=== PATIENT | male | born 1955 | race Caucasian/White ===

== ENCOUNTER 2018-06-20 21:43 | Emergency (ER) | payer OTHER ==
[~2018-06-20] VITALS: Ht 177.8 cm; Wt 136.1 kg
[~2018-06-20 21:43] MED LIST: ADULT LOW DOSE81 MG PO; ASPIR 8181 MG PO; B12 PO; BACTRIM DS TAB1 EACH PO; CARDURA4 MG PO; CENTRUM SILVER1 EAC2 PO; CRANBERRY 6,001 EACH PO; FISH OIL 1,001000 M2 PO; FISH OIL 1,001000 MG; FISH OIL 1,2001 EAC3 PO; FUROSEMIDE 40 M40 M1 PO; LASIX 40 MG TAB40 M2 PO; MELATONIN3 MG PO; MOBIC15 MG PO; NORCO 5-325 TA1 EACH PO; NORVASC 5 MG TAB5 MG PO; NORVASC5 MG PO; OMEPRAZOLE 20 M20 MG; OMEPRAZOLE40 MG PO; PAXIL10 MG PO; PERCOCET 5-3251 EACH PO; POLYMYXIN B/TMP10 ML OP; PRILOSEC40 MG PO; TOPROL XL50 MG PO; VITAMIN C WITH500 MG PO; VITAMIN C1000 MG PO; VITAMIN D2000 UNIT PO; VITAMINC500; VITAMINC500 PO
[2018-06-20 22:21] LABS: ABSOLUTE EOSINOPHILS 0.3 thou/uL (0.0-0.7); ABSOLUTE LYMPHOCYTES 1.8 thou/uL (0.8-5.3); ABSOLUTE MONOCYTES 0.5 thou/uL (0.0-1.2); ABSOLUTE NEUTROPHILS 2.8 thou/uL (1.6-8.1); BASOPHILS 0.9 %; EOSINOPHILS 5.7 %; HEMATOCRIT 40.5 % (42.0-52.0); HEMOGLOBIN 13.6 gm/dL (14.0-18.0); LYMPHOCYTES 32.4 %; MCH 32.9 pg (26.0-34.0); MCHC 33.7 g/dL (28.0-37.0); MCV 97.5 fL (80.0-100.0); MONOCYTES 9.8 %; NUCLEATED RBCS 0 /100WBC; PLATELET COUNT* 222 thou/uL (150-400); POLYS 51.2 %; RBC 4.15 mil/uL (4.50-6.00); RDW-CV 13.4 % (10.5-14.5); WBC 5.5 thou/uL (4.0-11.0)
[2018-06-20 22:26] LABS: ANION GAP 4 mmol/L (7-16); BUN 20 mg/dL (7-18); CALCIUM 9.1 mg/dL (8.5-10.1); CHLORIDE 104 mmol/L (98-107); CO2 33 mmol/L (21-32); GLUCOSE 106 mg/dL (70-99); POTASSIUM 3.5 mmol/L (3.5-5.1); SODIUM 141 mmol/L (136-145)
[2018-06-20 22:42] LABS: ALBUMIN 3.5 g/dL (3.4-5.0); ALKALINE PHOSPHATASE 80 U/L (46-116); LIPASE 160 U/L (73-393); NT-PRO BRAIN NAT PEPTIDE 36 pg/mL (<300); SGOT 20 U/L (15-37); SGPT 30 U/L (30-65); TOTAL BILIRUBIN 0.4 mg/dL (<0.1-1.0); TOTAL PROTEIN 7.6 g/dL (6.4-8.2); TROPONIN-I LEVEL <0.06 ng/mL (<0.06)
[2018-06-21 01:35] VITALS: BP 146/83
--- NOTE | 2018-06-21 09:00 | EKG ---
[place] [address] ELECTROCARDIOGRAM REPORT Name: JOYCELYN WONG [id number] Admission: 06/20/18 Attend Phys: Discharge: 06/21/18 Date of : 55 Report #: [id number] THIS REPORT FOR: //name// [facility] ED Test Date: 2018-06-20 Test Time: 21:54:19 Pat Name: JOYCELYN WONG Department: Room: Gender: Teacher Citizenship: Vidal RIVAS : 1955 Requested By: Negrita Murphy Order Number: [id number] MD: Charly Sidhu Measurements Intervals [place] Rate: 71 P: 51 [place]: 164 QRS: 9 QRSD: 109 T: 35 QT: 378 QTc: 411 Interpretive Statements Sinus rhythm Compared to ECG 03/09/2016 13:28:13 No significant changes Electronically Signed On 06-21-2018 8:59:52 BILL CUTTER by Charly Sidhu [email or web address] <ELECTRONICALLY SIGNED> By: Charly Sidhu MD, [facility] 06/21/18 [id number] Charly Sidhu MD, FACC /EPI
== END 2018-06-21 01:35 | disposition home or self-care (01) ==
LOC: M.ERS 21:43
PROVIDERS: Personal Emergency Response Attendant
DX: R07.89 Other chest pain (principal); I10 Essential (primary) hypertension; E78.5 Hyperlipidemia, unspecified; Z85.51 Personal history of malignant neoplasm of bladder; Z88.0 Allergy status to penicillin

== ENCOUNTER 2019-09-12 16:51 | Emergency (ER) | payer BC ==
[~2019-09-12] VITALS: Ht 177.8 cm; Wt 136.1 kg
[2019-09-12] MEDS ORDERED: NORCO 5-325 TA1 EAC1 PO (17:30)
[2019-09-12 18:15] VITALS: BP 148/82
== END 2019-09-12 18:16 | disposition home or self-care (01) ==
LOC: M.ERS 16:51
DX: S50.02XA Contusion of left elbow, initial encounter (principal); I10 Essential (primary) hypertension; Z85.51 Personal history of malignant neoplasm of bladder; Z88.0 Allergy status to penicillin; W01.0XXA Fall on same level from slipping, tripping and stumbling without subsequent striking against object, initial encounter; Y93.89 Activity, other specified; Y92.89 Other specified places as the place of occurrence of the external cause; Y99.8 Other external cause status

== ENCOUNTER → 2019-09-18 | Outpatient (CLI) | payer BC ==
[~2019-09-18] MED LIST changes: +NORCO 5-325 TA1 EAC1 PO
== END ==
LOC: M.RAD 11:43
DX: M79.89 Other specified soft tissue disorders (principal)

== ENCOUNTER 2020-02-23 15:47 | Inpatient (IN) | payer BC, MEDICARE ==
[~2020-02-23] VITALS: Ht 177.8 cm; Wt 145.1 kg
[2020-02-23 15:57] VITALS: BP 153/84
[2020-02-23 16:24] LABS: ABSOLUTE EOSINOPHILS 0.2 thou/uL (0.0-0.7); ABSOLUTE LYMPHOCYTES 1.4 thou/uL (0.8-5.3); ABSOLUTE MONOCYTES 0.5 thou/uL (0.0-1.2); ABSOLUTE NEUTROPHILS 3.2 thou/uL (1.6-8.1); BASOPHILS 0.8 %; EOSINOPHILS 3.9 %; HEMATOCRIT 38.1 % (42.0-52.0); HEMOGLOBIN 13.1 gm/dL (14.0-18.0); LYMPHOCYTES 26.1 %; MCH 33.2 pg (26.0-34.0); MCHC 34.3 g/dL (28.0-37.0); MCV 96.9 fL (80.0-100.0); MONOCYTES 9.9 %; MPV 7.5 fl. (7.2-11.1); NUCLEATED RBCS 0 /100WBC; PLATELET COUNT* 187 thou/uL (150-400); POLYS 59.3 %; RBC 3.93 mil/uL (4.50-6.00); RDW-CV 13.5 % (10.5-14.5); WBC 5.4 thou/uL (4.0-11.0)
[2020-02-23 16:29] LABS: CALCIUM 8.3 mg/dL (8.5-10.1)
[2020-02-23 16:32] LABS: APTT 25.9 Seconds (25.0-31.3); PROTIME 10.1 Seconds (9.20-11.50)
[2020-02-23 16:39] LABS: ALBUMIN 3.6 g/dL (3.4-5.0); TOTAL BILIRUBIN 0.5 mg/dL (<0.1-1.0)
[2020-02-23 17:28] VITALS: BP 144/73
[2020-02-23 18:29] LABS: CHOLESTEROL 200 mg/dL (<200); HDL CHOLESTEROL 45 mg/dL (>40); LDL CHOLESTEROL 127 mg/dL (<100); TC:HDL 4.4 Ratio (Not establshd); TRIGLYCERIDE 142 mg/dL (<150); VLDL 28 mg/dL (<40)
[2020-02-23 18:30] LABS: SERUM ASSESSMENT Clear
[2020-02-23 18:47] VITALS: BP 157/80
[2020-02-23 20:15] VITALS: BP 137/75
[2020-02-23] MEDS ORDERED: D3-200050 MCG PO (20:39)
[2020-02-23] MEDS ORDERED: LITE COAT ASPI325 MG PO (20:41)
[2020-02-24] VITALS (9 sets, daily range): BP systolic 119–147; BP diastolic 51–82
--- NOTE | 2020-02-24 15:44 | EKG ---
[place] [address] ELECTROCARDIOGRAM REPORT Name: JOYCELYN WONG Room: [address] ADM IN .R.#: [id number] Admission: 02/23/20 Attend Phys: Annamaria Burns, Discharge: Date of : 55 Date of Service: 02/23/20 1559 Report #: [id number] THIS REPORT FOR: //name// [facility] ED Test Date: 2020-02-23 Test Time: 15:59:38 Pat Name: JOYCELYN WONG Department: Room: [facility] Gender: M Economic Research Assistant: GLORIA : 1955 Requested By: Samuel Marquis Order Number: [id number] MD: Antonio Morrissey Measurements Intervals [place] Rate: 84 P: 54 [place]: 165 QRS: 52 QRSD: 100 T: 43 QT: 345 QTc: 408 Interpretive Statements Sinus rhythm Compared to ECG 06/20/2018 21:54:19 No significant changes Electronically Signed On 02-24-2020 15:44:29 CDT by Antonio Morrissey [email or web address] <ELECTRONICALLY SIGNED> By: Antonio Morrissey MD, [facility] 02/24/20 1544 1559 1559 Antonio Morrissey MD, [facility] /EPI
[2020-02-25 04:00] VITALS: BP 132/68
[2020-02-25 04:47] LABS: HEMATOCRIT 37.7 % (42.0-52.0); HEMOGLOBIN 12.6 gm/dL (14.0-18.0); MCH 32.7 pg (26.0-34.0); MCHC 33.4 g/dL (28.0-37.0); MCV 97.8 fL (80.0-100.0); RBC 3.85 mil/uL (4.50-6.00); RDW-CV 13.4 % (10.5-14.5); WBC 4.5 thou/uL (4.0-11.0)
[2020-02-25 04:56] LABS: CALCIUM 8.6 mg/dL (8.5-10.1); CREATININE 1.1 mg/dL (0.6-1.3); MAGNESIUM 2.1 mg/dL (1.8-2.4); POTASSIUM 4.1 mmol/L (3.5-5.1)
[2020-02-25] MEDS ORDERED: LEVOFLOXACIN500 MG PO (07:37)
[2020-02-25 08:00] VITALS: BP 128/66
[2020-02-25 11:27] VITALS: BP 128/66
[2020-02-25 12:59] VITALS: BP 120/64
== END 2020-02-25 13:40 | disposition home or self-care (01) | DRG 195 ==
LOC: M.ERS 15:47 → M.TBA-ER 16:55 → M.2W 17:35
PROVIDERS: Family Medicine; ADMIT Internal Medicine; ATTEND Internal Medicine
DX: J18.9 Pneumonia, unspecified organism (principal); R60.9 Edema, unspecified; I50.9 Heart failure, unspecified; I11.0 Hypertensive heart disease with heart failure; Z20.828 Contact with and (suspected) exposure to other viral communicable diseases; Z85.51 Personal history of malignant neoplasm of bladder; Z79.82 Long term (current) use of aspirin; Z79.899 Other long term (current) drug therapy; Z88.0 Allergy status to penicillin

== ENCOUNTER → 2020-03-05 | Outpatient (CLI) | payer BC, MEDICARE ==
[~2020-03-05] MED LIST changes: +D3-200050 MCG PO; +LEVOFLOXACIN500 MG PO; +LITE COAT ASPI325 MG PO
== END ==
LOC: M.RAD 14:06
PROVIDERS: ATTEND Internal Medicine
DX: J15.6 Pneumonia due to other Gram-negative bacteria (principal); R09.89 Other specified symptoms and signs involving the circulatory and respiratory systems; M41.85 Other forms of scoliosis, thoracolumbar region